=== PATIENT | male | born 1955 | race Caucasian/White ===

== ENCOUNTER → 2018-12-08 | Outpatient (CLI) | payer OTHER | END | disposition home or self-care (01) | LOC: SHCH 14:42 | PROVIDERS: ATTEND Internal Medicine Cardiovascular Disease | DX: Z09 Encounter for follow-up examination after completed treatment for conditions other than malignant neoplasm (principal) | CPT/HCPCS: 93971 ==

== ENCOUNTER 2018-12-30 10:30 | Day surgery (SDC) | payer OTHER ==
[~2018-12-30] VITALS: Ht 182.9 cm; Wt 95.3 kg
[~2018-12-30 10:30] MED LIST: SODIUM CHLORIDE 0.9% 1000ML 1,000 ML IV ONE
[2018-12-30 11:03] VITALS: BP 148/84
[2018-12-30] MEDS ORDERED: PROPOFOL 10 MG/ML 20ML VIAL IV ONE ×3 (11:47→12:14)
[2018-12-30 12:18] VITALS: BP 118/59
[2018-12-30 12:23] VITALS: BP 131/67
[2018-12-30 12:28] VITALS: BP 137/74
[2018-12-30 12:33] VITALS: BP 138/74
[2018-12-30 12:38] VITALS: BP 140/74
--- NOTE | 2018-12-30 12:45 | NUR ---
dc pt dc home via w[place], no distress noted. denied any pain or discomforts. accomapanied by spouse
== END 2018-12-30 12:45 | disposition home or self-care (01) ==
LOC: ENDO 10:30 → DAH 10:30 → ENDO 12:45
PROVIDERS: ATTEND Internal Medicine Gastroenterology
DX: Z12.11 Encounter for screening for malignant neoplasm of colon (principal); K63.5 Polyp of colon; D12.2 Benign neoplasm of ascending colon; K27.9 Peptic ulcer, site unspecified, unspecified as acute or chronic, without hemorrhage or perforation; Z86.010 Personal history of colon polyps; K29.50 Unspecified chronic gastritis without bleeding; K31.7 Polyp of stomach and duodenum; E78.5 Hyperlipidemia, unspecified; K21.9 Gastro-esophageal reflux disease without esophagitis; I10 Essential (primary) hypertension; I25.10 Atherosclerotic heart disease of native coronary artery without angina pectoris; M19.90 Unspecified osteoarthritis, unspecified site; M41.9 Scoliosis, unspecified; M54.5 Low back pain; Z79.899 Other long term (current) drug therapy
CPT/HCPCS: 43239; 45380; 45385; 88305; A4606; J2704 ×3; J7030

== ENCOUNTER → 2019-09-02 | Outpatient (CLI) | payer OTHER ==
--- NOTE | 2019-09-02 10:30 | NUR ---
MBSS COMPLETED. -S/S OF ASPIRATION OR PENETRATION. RECOMMEND REGULAR TEXTURE, THIN LIQUIDS; PILLS WHOLE WITH LIQUIDS. Addendum: 09/02/19 at 1312 by RANI MACHUCA, [facility] Amended: Links added.
== END | disposition home or self-care (01) ==
LOC: RAH 10:17
PROVIDERS: ATTEND Otolaryngology
DX: C01 Malignant neoplasm of base of tongue (principal); R13.13 Dysphagia, pharyngeal phase; Z85.810 Personal history of malignant neoplasm of tongue
CPT/HCPCS: 74230; 92611

== ENCOUNTER → 2022-11-20 | Outpatient (CLI) | payer OTHER | END | disposition home or self-care (01) | LOC: SHCH 11:25 | PROVIDERS: ATTEND Internal Medicine Cardiovascular Disease | DX: G45.1 Carotid artery syndrome (hemispheric) (principal) | CPT/HCPCS: 93880 ==

== ENCOUNTER → 2023-11-19 | Outpatient (CLI) | payer OTHER | END | disposition home or self-care (01) | LOC: OIH 10:12 | PROVIDERS: ATTEND Internal Medicine Cardiovascular Disease | DX: Z13.6 Encounter for screening for cardiovascular disorders (principal) | CPT/HCPCS: 75571 ==

== ENCOUNTER → 2023-12-30 | Outpatient (CLI) | payer OTHER ==
[2023-12-30] MEDS: REGADENOSON 0.4 MG/5 ML PF SYG IVP ONE (14:53)
== END | disposition home or self-care (01) ==
LOC: SHCH 08:55
PROVIDERS: ATTEND Internal Medicine Cardiovascular Disease
DX: I25.10 Atherosclerotic heart disease of native coronary artery without angina pectoris (principal)
CPT/HCPCS: 78452; 96374; 93017; J2785; A9500 ×2